=== PATIENT | female | born 1930 | race Caucasian/White ===

== ENCOUNTER 2016-10-19 06:50 | Emergency (ER) | payer MEDICARE, OTHER ==
[2016-10-19] MEDS ORDERED: LIDOCAINE PATCH 5% TOP STA (07:22)
[2016-10-19] MEDS ORDERED: MORPHINE 2 MG/ML SYRINGE IVP STA ×2 (07:22→08:46)
[2016-10-19] MEDS ORDERED: SODIUM CHLORIDE 0.9% 1,000 ML IV ONE (07:23)
[2016-10-19] MEDS ORDERED: LIDOCAINE PATCH 5% TOP ONE (07:29)
[2016-10-19] MEDS ORDERED: MORPHINE 2 MG/ML SYRINGE ONE ×2 (07:29→08:52)
[2016-10-19] MEDS ORDERED: IOPAMIDOL-300 100 ML VIAL IVP ONE (08:47)
== END 2016-10-19 13:05 | disposition home or self-care (01) ==
DX: M54.6 Pain in thoracic spine (principal); R31.29 Other microscopic hematuria; R93.5 Abnormal findings on diagnostic imaging of other abdominal regions, including retroperitoneum
CPT/HCPCS: 36415; 71275; 74174; 80053; 81001; 83690; 85025; 96361; 96374; 96376; 99284; 99285; A9270; Q9967

== ENCOUNTER 2016-10-30 09:22 | Outpatient (CLI) | payer MEDICARE, OTHER | END 2016-10-30 09:23 | disposition home or self-care (01) | DX: R10.11 Right upper quadrant pain (principal); K86.89 Other specified diseases of pancreas; N13.30 Unspecified hydronephrosis; Z90.5 Acquired absence of kidney ==

== ENCOUNTER 2018-07-16 16:34 | Emergency (ER) | payer MEDICARE, OTHER ==
--- NOTE | 2018-07-16 16:49 | ED Physician Documentation ---
History of Present Illness - Stated complaint Stated Complaint: DIZZY UNABLE TO WALK - Chief complaint Chief Complaint: Cardiac - History obtained from History obtained from: Patient, Family - History of Present Illness Timing: Today Pain level max: 0 Pain level now: 0 Quality: room spinning Improved by: rest Worsened by: standing up - Additonal information Additional information: 88-year-old female with history of breathlessness leg syndrome, Mycobacterium avium treated with Zithromax here with complaint of waking up feeling dizzy today. She described the dizziness as room spinning and associated with nausea. Denies any fever, headache, visual changes or vomiting. Denies any trauma, recent illness or sick contacts.Daughter stated this is the first time it ever happened to her. Per daughter patient is independent and able to walk without any assistance except for cane. Today patient was unsteady and walking requiring to be assisted and held.Yesterday they were walking around the mall without any difficulties. Review of Systems Ten Systems: 10 systems reviewed and negative Constitutional: denies: Fever, Myalgias, Fatigue Eyes: denies: Loss of vision, Decreased vision Ears: denies: Loss of hearing, Ear pain, Drainage/discharge, Tinnitus/ringing Nose: denies: Rhinorrhea / runny nose, Congestion Throat: denies: Sore throat Cardiac: denies: Chest pain / pressure, Palpitations Respiratory: reports: Cough (Intermittent chronic dry cough). denies: Dyspnea GI: reports: Nausea. denies: Abdominal Pain, Vomiting, Diarrhea Musculoskeletal: reports: Other (Uses cane for walking). denies: Neck pain, Back pain, Extremity pain Neurologic: reports: Numbness (Bilateral leg tingling and slight numbness this morning which has now resolved.), Other (Unsteady gait). denies: Generalized weakness, Focal weakness, Difficulty speaking, Confused, Altered mental status, Headache, Head injury Psychiatric: denies: Depressed PD PAST MEDICAL HISTORY - Past Medical History Endocrine/Autoimmune: HyPOthyroidism - Past Surgical History Past Surgical History: Yes - Present Medications Home Medications: Ambulatory Orders Medication Instructions Recorded Confirmed Levothyroxine [Synthroid] 50 mcg PO QDAC 10/19/16 10/19/16 Cephalexin [Keflex] 500 mg PO TID #21 capsule 07/16/18 - Allergies Allergies/Adverse Reactions: Allergies Allergy/AdvReac Type Severity Reaction Status Date / Time procaine HCl * Allergy Unknown Verified 07/16/18 16:46 [From Novocain] - Social History Does the pt smoke?: No Smoking Status: Never smoker Does the pt drink ETOH?: No Does the pt have substance abuse?: No - Immunizations Immunizations are current?: Yes - POLST Patient has POLST: No PD ED PE NORMAL - Vitals Vital signs reviewed: Yes - General General: Alert and oriented X 3, No acute distress, Well developed/nourished - HEENT HEENT: Atraumatic, PERRL, EOMI, Ears normal (Bilateral dry cerumen), Moist mucous membranes, Pharynx benign - Neck Neck: Supple, no meningeal sign, No bony TTP, No adenopathy - Cardiac Cardiac: RRR, No murmur - Respiratory Respiratory: No respiratory distress, Clear bilaterally - Abdomen Abdomen: Normal bowel sounds, Soft, Non tender, Non distended - Back Back: No CVA TTP, No spinal TTP - Derm Derm: Normal color, Warm and dry, No rash - Extremities Extremities: No deformity, No tenderness to palpate, Normal ROM s pain, No edema - Neuro Neuro: Alert and oriented X 3, medical transport specialist 2-12 intact, No motor deficit, No sensory deficit, Normal speech - Psych Psych: Normal mood, Normal affect Results - Vitals Vitals: Vital Signs - 24 hr 07/16/18 07/16/18 07/16/18 16:41 17:02 17:56 Temperature Heart Rate 107 H 92 90 Heart Rate [ Sitting] Heart Rate [ Standing] Heart Rate [ Supine] Respiratory 16 22 97 H Rate Blood Pressure 127/82 H 120/63 121/74 Blood Pressure [Sitting] Blood Pressure [Standing] Blood Pressure [Supine] O2 Saturation 94 97 07/16/18 07/16/18 07/16/18 18:30 19:07 21:44 Temperature Heart Rate 85 Heart Rate [ 95 89 Sitting] Heart Rate [ 106 H 92 Standing] Heart Rate [ 88 86 Supine] Respiratory 23 Rate Blood Pressure 116/57 L Blood Pressure 103/65 142/79 H [Sitting] Blood Pressure 107/67 153/81 H [Standing] Blood Pressure 74/59 L 134/71 H [Supine] O2 Saturation 96 07/16/18 07/16/18 22:00 22:47 Temperature 36.5 C Heart Rate 88 85 Heart Rate [ Sitting] Heart Rate [ Standing] Heart Rate [ Supine] Respiratory 16 16 Rate Blood Pressure 134/74 H 144/77 H Blood Pressure [Sitting] Blood Pressure [Standing] Blood Pressure [Supine] O2 Saturation 97 98 Oxygen O2 Source Room air - EKG (time done) 1647 Rate: Rate (enter#) (97) Rhythm: NSR [place]: Normal Intervals: Normal IN QRS: Normal Ischemia: Normal ST segments Other comments: Other comments (artifacts) - Labs Labs: Laboratory Tests 07/16/18 07/16/18 07/16/18 16:55 16:55 16:55 WBC 6.6 RBC 4.84 Hgb 12.5 Hct 38.2 MCV 78.8 L MCH 25.8 L MCHC 32.7 RDW 13.4 Plt Count 303 MPV 7.4 L Neut # (Auto) 4.7 Lymph # (Auto) 1.0 L [place] # (Auto) 0.6 Eos # (Auto) 0.3 Baso # (Auto) 0.0 Absolute Nucleated RBC 0.00 Nucleated RBC % 0.0 Sodium 133 L Potassium 3.7 Chloride 100 L Carbon Dioxide 27 Anion Gap 6.0 BUN 17 Creatinine 0.7 Estimated GFR (MDRD) 79 L Glucose 134 H Calcium 9.1 Total Bilirubin 0.8 AST 28 ALT 19 Alkaline Phosphatase 108 Troponin I < 0.04 Total Protein 7.2 Albumin 3.4 Globulin 3.8 Albumin/Globulin Ratio 0.9 L Lipase 38 Urine Color Urine Clarity Urine pH Ur Specific [place] Urine Protein Urine Glucose (UA) Urine Ketones Urine Occult Blood Urine Nitrite Urine Bilirubin Urine Urobilinogen Ur Leukocyte Esterase Urine RBC Urine WBC Urine WBC Clumps Ur Squamous Epith Cells Urine Bacteria Ur Microscopic Review Urine Culture Comments 07/16/18 17:48 WBC RBC Hgb Hct MCV MCH MCHC RDW Plt Count MPV Neut # (Auto) Lymph # (Auto) [place] # (Auto) Eos # (Auto) Baso # (Auto) Absolute Nucleated RBC Nucleated RBC % Sodium Potassium Chloride Carbon Dioxide Anion Gap BUN Creatinine Estimated GFR (MDRD) Glucose Calcium Total Bilirubin AST ALT Alkaline Phosphatase Troponin I Total Protein Albumin Globulin Albumin/Globulin Ratio Lipase Urine Color YELLOW Urine Clarity HAZY Urine pH 7.0 Ur Specific [place] 1.010 Urine Protein NEGATIVE Urine Glucose (UA) NEGATIVE Urine Ketones NEGATIVE Urine Occult Blood SMALL H Urine Nitrite POSITIVE H Urine Bilirubin NEGATIVE Urine Urobilinogen 0.2 (NORMAL) Ur Leukocyte Esterase LARGE H Urine RBC 6-10 H Urine WBC >25 H Urine WBC Clumps PRESENT Ur Squamous Epith Cells RARE Squamous Urine Bacteria Many H Ur Microscopic Review INDICATED Urine Culture Comments INDICATED PD MEDICAL DECISION MAKING - ED course Complexity details: re-evaluated patient (2005 orthostatic vital signs were done and patient became very dizzy with hypotension. Will give IV fluids. 2144 patient states she is feeling better wants to go home. Orthostatic done and vital signs were improved. Patient had some dizziness when lying down and felt unsteady on walking. Family wants for patient to be admitted overnight. [address] Horton called case was discussed. She stated that patient does not qualify for admission based on Medicare criteria. She wants the patient or family to sign an ABN form stating that they will be responsible for patient's hospital payment I informed patient and family about this. They choose to take the patient home. Patient's daughter is retired and will take care of her mom. Patient lives with them. Instructions given on maintaining safety drinking water and taking the antibiotics for her UTI. They will follow-up with her PCP.), considered differential (Benign positional vertigo, intracranial bleed, intracranial mass, anemia, electrolyte imbalance), d/w patient, d/w family (1829 patient and family informed of test results. Will give antibiotics for UTI.) Departure - Departure Disposition: Home, Self Care Clinical Impression: Dizziness UTI (urinary tract infection) Qualifiers: Urinary tract infection type: acute cystitis Hematuria presence: without hematuria Qualified Code(s): N30.00 - Acute cystitis without hematuria Condition: Stable Instructions: ED Dizziness UKO, ED UTI Cystitis Female, ED Vertigo Unspecified Prescriptions: Cephalexin [Keflex] 500 mg PO TID #21 capsule Comments: Make sure you get up slowly. Always ask for assistance. Maintain safety so you do not fall. Drink 6 glasses of water a day for your bladder infection. And finish the antibiotic as prescribed. Follow-up with your primary doctor this week. If worse return to the emergency room Discharge Date/Time: 07/16/18 22:49
[2018-07-16 17:23] LABS: BASOPHILS % (AUTO) 0.5 %; EOSINOPHILS # (AUTO) 0.3 10^3/uL (0.0-0.7); HGB - HEMOGLOBIN 12.5 g/dL (12.0-16.0); LYMPHOCYTES % (AUTO) 15.2 %; MEAN CORPUSCULAR HEMOGLOBIN 25.8 pg (27.0-31.0); MEAN CORPUSCULAR HGB CONC 32.7 g/dL (32.0-36.0); MEAN CORPUSCULAR VOLUME 78.8 fL (81.0-99.0); MEAN PLATELET VOLUME 7.4 fL (7.9-10.8); MONOCYTES # (AUTO) 0.6 10^3/uL (0.0-1.0); MONOCYTES % (AUTO) 8.6 %; NEUTROPHILS # (AUTO) 4.7 10^3/uL (1.5-6.6); NEUTROPHILS % (AUTO) 71.7 %; PLT - PLATELET COUNT 303 10^3/uL (130-450); RED BLOOD COUNT 4.84 10^6/uL (4.20-5.40); RED CELL DISTRIBUTION WIDTH 13.4 % (12.0-15.0); WHITE BLOOD COUNT 6.6 x10^3/uL (4.8-10.8)
[2018-07-16 17:26] LABS: ALBUMIN 3.4 g/dL (3.2-5.5); ALBUMIN/GLOBULIN RATIO 0.9 (1.0-2.2); BILIRUBIN,TOTAL 0.8 mg/dL (0.2-1.0); CALCIUM 9.1 mg/dL (8.5-10.3); CREATININE 0.7 mg/dL (0.4-1.0); TOTAL PROTEIN 7.2 g/dL (6.7-8.2)
[2018-07-16 17:58] LABS: BILIRUBIN,URINE NEGATIVE (NEGATIVE); GLUCOSE, URINE (UA) NEGATIVE (NEGATIVE); KETONES,URINE (UA) NEGATIVE (NEGATIVE); LEUKOCYTE ESTERASE, URINE LARGE (NEGATIVE); NITRITE,URINE POSITIVE (NEGATIVE); OCCULT BLOOD,URINE SMALL (NEGATIVE); PROTEIN,URINE NEGATIVE (NEGATIVE); UROBILINOGEN,URINE 0.2 (NORMAL) E.U./dL (NORMAL)
[2018-07-16 18:00] LABS: CLARITY,URINE HAZY (CLEAR)
--- NOTE | 2018-07-16 18:02 | XRAY Report ---
Reason: dizzy Procedure Date: 07/16/2018 Accession Number: [id number] / [id number] Procedure: XR - Chest 1 View X-Ray CPT Code: 42695 FULL RESULT: EXAM: CHEST RADIOGRAPHY EXAM DATE: 07/16/2018 05:42 PM. CLINICAL HISTORY: Dizzy. COMPARISON: 04/01/2016. TECHNIQUE: 1 view. FINDINGS: No acute consolidation identified. Extensive bilateral reticulonodular densities with interstitial prominence are similar. Normal heart size. Lungs are hyperinflated. No visualized pleural effusion or pneumothorax. IMPRESSION: No acute findings. RADIA
--- NOTE | 2018-07-16 18:04 | CT Report ---
Reason: dizzy Procedure Date: 07/16/2018 Accession Number: [id number] / [id number] Procedure: CT - Head W/O CPT Code: FULL RESULT: EXAM: CT HEAD EXAM DATE: 07/16/2018 05:29 PM. CLINICAL HISTORY: Dizzy. COMPARISON: None. TECHNIQUE: Multiaxial CT images were obtained from the foramen magnum to the vertex. Reformats: Sagittal and coronal. IV contrast: None. In accordance with CT protocol optimization, one or more of the following dose reduction techniques were utilized for this exam: automated exposure control, adjustment of mA and/or KV based on patient size, or use of iterative reconstructive technique. FINDINGS: Parenchyma: No intraparenchymal hemorrhage. No evidence of mass, midline shift, or CT findings of acute infarction. Barnes-white differentiation is distinct. Mild chronic microangiopathic white matter changes are evident. Extraaxial Spaces: Normal for age. No subdural or epidural collections identified. Ventricles: The ventricles and cortical sulci are enlarged, consistent with age-related tissue loss. Sinuses and orbits: Mild mucosal thickening in the maxillary sinuses, otherwise the imaged paranasal sinuses, orbits, and mastoids show no significant abnormality. Bones: No evidence of fracture or calvarial defect. Other: None. IMPRESSION: Generalized age-related cortical atrophic changes without evidence of acute intracranial abnormality. RADIA
[2018-07-16 18:05] LABS: WBC CLUMPS,URINE PRESENT
[2018-07-16 18:06] LABS: BACTERIA,URINE Many /HPF (None Seen); SQUAMOUS EPITHELIAL CELL,UR RARE Squamous (<= Few)
[2018-07-16] MEDS ORDERED: cefTRIAXone 1 GM VIAL IVP STA (18:58)
[2018-07-16] MEDS ORDERED: SODIUM CHLORIDE 0.9% 500 ML IV ONE (20:06)
[2018-07-16 22:46] VITALS: BP 144/77
== END 2018-07-16 22:49 | disposition home or self-care (01) ==
LOC: ED 16:34
DX: R42 Dizziness and giddiness (principal); N30.00 Acute cystitis without hematuria; I95.9 Hypotension, unspecified
CPT/HCPCS: 36415; 70450; 71045; 80053; 81001; 81003; 83690; 84484; 85025; 87086; 93005; 96361; 96374; 99283; 99285

== ENCOUNTER 2018-10-18 13:40 | Outpatient (CLI) | payer MEDICARE, OTHER ==
[2018-10-18 19:35] LABS: BASOPHILS % (AUTO) 0.5 %; EOSINOPHILS # (AUTO) 0.1 10^3/uL (0.0-0.7); EOSINOPHILS % (AUTO) 1.7 %; LYMPHOCYTES % (AUTO) 15.2 %; MEAN CORPUSCULAR HEMOGLOBIN 25.8 pg (27.0-31.0); MEAN CORPUSCULAR HGB CONC 32.1 g/dL (32.0-36.0); MEAN CORPUSCULAR VOLUME 80.4 fL (81.0-99.0); MEAN PLATELET VOLUME 7.8 fL (7.9-10.8); MONOCYTES # (AUTO) 0.4 10^3/uL (0.0-1.0); MONOCYTES % (AUTO) 6.3 %; NEUTROPHILS % (AUTO) 76.3 %; PLT - PLATELET COUNT 351 10^3/uL (130-450); RED BLOOD COUNT 4.64 10^6/uL (4.20-5.40); RED CELL DISTRIBUTION WIDTH 13.1 % (12.0-15.0); WHITE BLOOD COUNT 6.5 x10^3/uL (4.8-10.8)
[2018-10-18 20:02] LABS: ALBUMIN/GLOBULIN RATIO 0.8 (1.0-2.2); BILIRUBIN,TOTAL 0.5 mg/dL (0.2-1.0); CALCIUM 8.9 mg/dL (8.5-10.3); CREATININE 0.5 mg/dL (0.4-1.0)
== END 2018-10-18 13:41 | disposition home or self-care (01) ==
LOC: LAB.WCP 13:40
PROVIDERS: ATTEND Internal Medicine
DX: E03.9 Hypothyroidism, unspecified (principal); A31.2 Disseminated mycobacterium avium-intracellulare complex (DMAC)
CPT/HCPCS: 36415; 80053; 84443; 85025

== ENCOUNTER 2019-04-17 11:42 | Outpatient (CLI) | payer MEDICARE, OTHER ==
[2019-04-17 18:40] LABS: BASOPHILS % (AUTO) 0.5 %; EOSINOPHILS # (AUTO) 0.1 10^3/uL (0.0-0.7); EOSINOPHILS % (AUTO) 1.6 %; LYMPHOCYTES % (AUTO) 15.9 %; MEAN CORPUSCULAR HEMOGLOBIN 24.7 pg (27.0-31.0); MEAN CORPUSCULAR HGB CONC 30.2 g/dL (32.0-36.0); MEAN CORPUSCULAR VOLUME 81.7 fL (81.0-99.0); MEAN PLATELET VOLUME 9.8 fL (7.9-10.8); MONOCYTES # (AUTO) 0.6 10^3/uL (0.0-1.0); MONOCYTES % (AUTO) 8.6 %; NEUTROPHILS # (AUTO) 4.7 10^3/uL (1.5-6.6); NEUTROPHILS % (AUTO) 73.1 %; PLT - PLATELET COUNT 344 10^3/uL (130-450); RED BLOOD COUNT 4.86 10^6/uL (4.20-5.40); RED CELL DISTRIBUTION WIDTH 13.9 % (12.0-15.0); WHITE BLOOD COUNT 6.4 x10^3/uL (4.8-10.8)
[2019-04-17 18:54] LABS: ALBUMIN 3.1 g/dL (3.2-5.5); ALBUMIN/GLOBULIN RATIO 0.8 (1.0-2.2); ALKALINE PHOSPHATASE 83 IU/L (42-121); ALT ALANINE AMINOTRANSFERASE 15 IU/L (10-60); AST ASPARTATE AMINOTRANSFERASE 22 IU/L (10-42); BILIRUBIN,TOTAL < 0.2 mg/dL (0.2-1.0); BUN - BLOOD UREA NITROGEN 10 mg/dL (6-20); CALCIUM 9.5 mg/dL (8.5-10.3); CARBON DIOXIDE - CO2 26 mmol/L (21-32); CHLORIDE 102 mmol/L (101-111); CHOL/HDL RATIO 3.7 (<4.4); CHOLESTEROL 146 mg/dL; CREATININE 0.5 mg/dL (0.4-1.0); GFR - MDRD 116 (>89); GLUCOSE 137 mg/dL (70-100); HDL CHOLESTEROL 39 mg/dL; LDL CHOLESTEROL,CALCULATED 88 mg/dL; LDL/HDL RATIO 2.3 (<4.4); SODIUM 138 mmol/L (135-145); TOTAL PROTEIN 7.2 g/dL (6.7-8.2); VLDL CHOLESTEROL 19 mg/dL
== END 2019-04-17 23:59 | disposition home or self-care (01) ==
LOC: LAB.WCP 11:42
PROVIDERS: ATTEND Physician Assistant
DX: Z79.899 Other long term (current) drug therapy (principal); E03.9 Hypothyroidism, unspecified
CPT/HCPCS: 36415; 80053; 80061; 83721; 84443; 85025

== ENCOUNTER 2019-08-10 09:32 | Outpatient (CLI) | payer MEDICARE, OTHER ==
--- NOTE | 2019-08-10 16:28 | XRAY Report ---
Reason: LEFT SIDE RIB PAIN Procedure Date: 08/10/2019 Accession Number: [id number] / [id number] Procedure: WCP - Ribs w/PA Chest LT CPT Code: Final Report FULL RESULT: EXAM: LEFT RIB RADIOGRAPHY EXAM DATE: 08/10/2019 09:32 AM. CLINICAL HISTORY: LEFT SIDE RIB PAIN. COMPARISON: CHEST 1 VIEW 07/16/2018 5:21 PM. TECHNIQUE: 1 view of the chest and 2 views of the ribs. FINDINGS: Bones: No acute displaced rib fracture. Lungs: Ill-defined airspace opacities in both mid and lower lung zones with small bilateral pleural effusions. Findings most consistent with bronchiectasis with chronic appearing scar-like parenchymal opacities. Findings overall unchanged since 07 16 18. Mediastinum: Heart and mediastinal contours are unremarkable. Other: None. IMPRESSION: No acute displaced rib fracture. No pneumothorax. Chronic unchanged ill-defined airspace opacities in both mid and lower lung zones with small bilateral pleural effusions. Unchanged since 07 16 18. RADIA
== END 2019-08-10 23:59 | disposition home or self-care (01) ==
LOC: DI.WCP 09:32
PROVIDERS: ATTEND Physician Assistant
DX: R91.8 Other nonspecific abnormal finding of lung field (principal); J90 Pleural effusion, not elsewhere classified; R07.81 Pleurodynia

== ENCOUNTER 2019-08-28 13:30 | Outpatient (CLI) | payer MEDICARE, OTHER ==
--- NOTE | 2019-08-28 17:17 | CONSULTATION NOTE ---
Palliative Care Consultation - Referral Referring Provider: Evelyne Cheng PA-C Time of Visit: [id number] Referral Reason: Failure to thrive - Information Sources Records reviewed: Previous records reviewed History/Review of Systems obtained from: Patient, Family (daughter, Charo) Exam limitations: Clinical condition (patient is limited in her communication and is a poor historian due to dementia) - History of Present Illness Brief History of Present Illness: This is 89-year-old female who presents today in her home with her daughter, Charo, present for evaluation due to failure to thrive, chronic lung disease, and dementia. She has always been functionally very active. In March of this year she was on the beach in [place]. Since that time she has gotten progressively weaker and has had an approximate 9 pound weight loss. She presently weighs approximately 67 pounds. She reports that she is not hungry and denies nausea, vomiting, or abdominal discomfort. Presently she will consume approximately 2 meals per day with "varying degrees of success" per her daughter. She also enjoys her coffee and a staple dish of spinach and potatoes. Her daughter has tried to offer Ensure, but she often refuses. Her daughter has also noticed short term memory loss that has progressed over the years. She is also napping more frequently during the day. Her daughter reports that the patient has been "ready to for years." She also states that the patient has always had some underlying depressive symptoms, but had always refused to take medication. She also would be prone to anger as well as some underlying paranoia. In one instance, she believed that her brother had stolen from her. 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) Neuro: Dementia Endocrine/Autoimmune: reports: HyPOthyroidism : reports: Incontinence (urinary incontinence), Other (frequent UTIs; Kidney Cancer 1991) Psych: reports: Depression MRSA Hx?: No - Past Surgical History Other past surgical history: Kidney Cancer 1991 that was surgically removed - Substance History Use: Uses substance without health or social issues: NONE Abuse: Recurrent use of substance despite neg consequences: NONE Social History - Living Situation Living arrangement: At home Living Situation: With family (resides with her daughter, Charo and her son-in-law Jamal who is an RN) Support System: The patient grew up on a family farm and had a [place] in [place]. She is 1 of 10 children. She [place] after she met and her . She originally resided in [place], [place]. She then moved to [place] to be closer to her daughter Beverley. Then approximately 11 years ago, she moved to [facility] and moved in with her daughter Charo. Her daughter reports that she was a really good cook and was always a homebody. 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 She has had her and then her two daughters look after her. Her prematurely approximately 20 years ago. She is a devote [employer]. She previously attended [employer] routinely and now that it is difficult for her to leave the home her daughter brings home communion. The russian language instructor has also been to the home to anoint her. Family History - Family History Family History: Mother: , Father: Family History Comment/Other: No family history of dementia. A brother was diagnosed with Stevenson's Disease at age 70. Medications/Allergies - Medications Home Medications: Ambulatory Orders Medication Instructions Recorded Confirmed Levothyroxine [Synthroid] 50 mcg PO .6 DAYS PER WEEK 10/19/16 10/19/16 - Allergies Allergies/Adverse Reactions: Allergies Allergy/AdvReac Type Severity Reaction Status Date / Time procaine HCl * Allergy Unknown Verified 07/16/18 16:46 [From Novocain] Review of Systems - Constitutional Constitutional: reports: Fatigue, Weakness, Poor appetite, Weight loss (weighed 77lbs during the Summer and presently 67lbs). denies: Fever - Eyes Eyes: reports: Corrective lenses - Ears, Nose & Throat Ears, Nose & Throat: denies: Nasal congestion - Cardiovascular Cardiovascular: denies: Chest pain, Edema - Respiratory Respiratory: reports: Cough (chronic cough). denies: Wheezing, SOB at rest - Gastrointestinal Gastrointestinal: denies: Abdominal pain, Abdominal distention, Constipation (bowel movement daily with use of half and half as creamer in her daily coffee), Diarrhea, Nausea, Vomiting, Early satiety - Genitourinary Genitourinary: reports: Incontinence (recently developed urinary incontience and in the last week started using depends). denies: Dysuria - Musculoskeletal Musculoskeletal: reports: Muscle weakness, Assistive devices (uses cane). denies: Joint pain - Neurological Neurological: reports: General weakness, Memory problems. denies: Dizziness - Psychiatric Psychiatric: reports: Depression - Endocrine Endocrine: reports: Hypothyroidism - Hematologic/Lymphatic Hematologic/Lymphatic: reports: Recurrent infections (history of frequent UTIs) - All Other Systems All Other Systems: reports: Reviewed and negative - Other Findings Other Findings: ROS obtained from patient and daughter as patient is a poor historian due to dementia. Physical Exam - Vital Signs Temperature: 36.8 C Pulse Rate: 102 O2 Saturation: 97 (on RA) Blood Pressure: 108/68 - Physical Exam General Appearance: positive: No acute distress, Alert, Cachetic Eyes Bilateral: positive: Other (+corrective lenses) ENT: positive: Other (MMM; b/l temporal wasting) Neck: positive: Thyroid nml, Other (thin). negative: Lymphadenopathy (R), Lymphadenopathy (L) Cardiovascular: positive: Tachycardia (mild), Other (+2 b/l radial and pedal pulses). negative: No murmur, No gallop Respiratory: positive: No respiratory distress, Rhonchi (BLL; chronic, nonproductive cough). negative: Wheezes Abdomen: positive: Non-tender, Soft, Nml bowel sounds, Other (scaphoid appe arance). negative: Guarding Skin: positive: Other (visible skin warm, dry and intact) Extremities: positive: Non-tender, Full ROM, No pedal edema, Other (Did not visualize ambulation today) Neurologic/Psychiatric: positive: Weakness, Depressed mood/affect (Answered some questions but typically her daughter answered) Palliative Care - POLST Patient has POLST: No Pain: No pain Drowsiness/Sedation: Moderate (4-6) (increased napping during the day) Nausea: None Anorexia: Severe (7-10), Weight loss (9lb weight loss in 6 months) Dyspnea: None Depression: Mild (1-3) Sleep: Sleeps well Constipation: No Performance Status: Patient has had a significant functional decline in the last several months. Previously she was able to ambulate independently, now she is requiring a cane as well as assistance of her daughter for ambulation. She has also has evidence of muscle wasting on examination-- leading to decreased muscular strength. She is also had frequent falls with minor injury. Accompanying this functional decline, she is relying more on her daughter for assistance with her ADLs. In the last week she has become increasingly incontinent requiring the use of depends. - Palliative Care Discussion: Patient has had significant decline in her functional status over the last several months as well as a steady decline in her cognitive abilities. She is consuming very little in the ways of nutrition that has lead lead to generalized weakness and a lack of muscular strength,. The patient has had a history of lifelong depression that has not been treated, and has expressed to her daughter that she is ready to . Her daughter is struggling as she sees her mother not consuming foods as "killing herself," but admits that she would be surprised to see her mother alive in 6 months time. The daughter is hopeful to see some improvement in her mother's appetite and potential for maintaining her current status with the treatment of her underlying depression. Hospice was introduced as the next step if the patient does not respond to medication therapy and the daughter was open to this intervention. The POLST was not addressed during this visit as the CITY ADMINISTRATOR was focused on building rapport with the patient and daughter. Impression and Recommendations - Palliative Care Impression: This is a 89-year-old woman with a history of chronic lung disease, hypothyroidism, a remote history of kidney cancer, and dementia. She has had significant functional decline in the last few months with decreased oral intake as well as a weight loss of greater than 9 pounds. Her daughter, Charo, wishes to focus on her quality of life, making her comfortable, and on advanced care planning. Recommendations/Counseling Done: 1. Protein Calorie Malnutrition. Patient is presently at a weight of 67 pounds, when she previously was 77 pounds approximately 6 months ago. She denies any gastrointestinal complaints that could be contributory to her rapid weight loss. Although she has indications of underlying dementia. This is unlikely to be contributing to her significant malnutrition. More than likely she has an underlying malignancy, especially considering her past history of kidney cancer. Discussed with daughter, Charo, potential ways to increase the patient's caloric intake such as Ensure, but the patient refuses. Who recommend that the family continue to offer pleasurable foods and offer in a series of threes to engage the patient in food consumption. Due to the patient's underlying history of lifelong depression will start Remeron 7.5 mg nightly for mood and appetite stimulation. Reviewed with her daughter, Charo, the risk and benefit of the m edication with the hopes that this could potentially improve the patient's appetite, however, relayed to Charo that we may be on a continued decline with understanding verbalized. 2. Dementia. Noted cognitive decline by the daughter, Charo, consistent with dementia as well as her past history of paranoia behaviors that were noted by the family. No behavioral concerns at this time. Fall precautions. Reviewed dementia progression with daughter and would continue to expect a cogntive decline due to the progressive course of dementia. Continue to provide the daughter and patient support. Recommended contacting the [facility] regarding the [facility] program and provided contact information. Also, for reducing caregiver burden, we reviewed contacting an caregiving agency on [facility] for several hours at a time that would be beneficial for Charo to have some relief and assistance with bathing. Will mail a list of companies for the daughter to review. 3. History of frequent falls/Generalized weakness. Patient has had a significant loss of functional strength in the last 6 months and is limited in her ability to preform her ADLs. Fall precautions. Recommend following up with the [employer] to obtain a transport wheelchair and Charo reported her PCP has requested a walker as the patient presently ambulates with a cane with support from Charo. Advised continued use of the shower chair and avoidance of getting into the tub to limit potential falls and injury to Charo as a caregiver. Her overall weakness is likely secondary to protein calorie malnutrition from an underlying, unknown malignancy. 4. Depression. Underlying lifelong depressive symptoms without prior treatment. Trial of 7.5mg remeron nightly for mood and appetite stimulation. See Dx. Protein calorie malnutrition for further details. 5. Hypothyroidism. Continue synthroid as prescribed and f/u with PCP for routine monitoring. 6. Advanced care planning. The patient has a living will and power of hand edge bander that lists both her daughters, with Charo the secondary point of contact. Reviewed with Charo as she is the primary director career services to reach out to her sister to establish in writing that she is granting permission to make the healthcare decisions on behalf of their mother. Discussed caregiving assistance as above. Goals at present are to focus on comfort. The concept of hospice was introduced and reviewed with Charo with verbalizing that the eventual goal would be to transition to hospice services when the family is ready for those services. Palliative care will continue to provide support regarding advanced care planning and symptom management for the patient and her family. Time Spent: Total time spent 90 with greater than 50% of time spent in counseling family and patient regarding escalation vs de-escalation of care, palliative/hospice philosophy as well as care coordination, review of symptom management and anticipatory guidance. Disclaimer: The chart note was formulated using voice recognition technology and unfortunately sounds like errors are possible.
== END 2019-08-28 13:31 | disposition home or self-care (01) ==
LOC: PC 13:30
PROVIDERS: ATTEND Nurse Practitioner Family
DX: Z51.5 Encounter for palliative care (principal); R62.7 Adult failure to thrive; J98.9 Respiratory disorder, unspecified; F03.90 Unspecified dementia, unspecified severity, without behavioral disturbance, psychotic disturbance, mood disturbance, and anxiety; E46 Unspecified protein-calorie malnutrition; R53.1 Weakness; F32.9 Major depressive disorder, single episode, unspecified; E03.9 Hypothyroidism, unspecified; Z79.899 Other long term (current) drug therapy; Z91.81 History of falling; Z85.528 Personal history of other malignant neoplasm of kidney
CPT/HCPCS: 99345